=== PATIENT | male | born 1965 | race Caucasian/White ===

== ENCOUNTER 2022-11-06 14:35 | Inpatient (IN) | payer OTHER ==
[2022-11-06 17:41] VITALS: BMI 24.0
[2022-11-06] MEDS ORDERED: IBUPROFEN 600 MG TABLET (FP) PO PRN (20:03)
[2022-11-06] MEDS ORDERED: ACETAMINOPHEN 325 MG TABLET (FP) PO PRN (20:03)
[2022-11-06] MEDS ORDERED: MAGNESIUM HYDROX 2400MG/30ML ORAL SUSPENSION 30 ML CUP PO PRN (20:03)
[2022-11-06] MEDS ORDERED: BISMUTH SUBSALICYLATE 524 MG/30 ML PO PRN (20:03)
[2022-11-06] MEDS ORDERED: POLYETHYLENE GLYCOL (HEALTHYLAX) 3350 17 GM PACKET PO PRN (20:03)
[2022-11-06] MEDS ORDERED: ONDANSETRON *ODT* 4 MG TABLET SL PRN (20:03)
[2022-11-06] MEDS ORDERED: NALOXONE HCL 0.4 MG/ML VIAL IM PRN (20:03)
[2022-11-06] MEDS ORDERED: LOPERAMIDE HCL 2 MG CAPSULE PO PRN (20:03)
[2022-11-06] MEDS ORDERED: NALOXONE HCL (KLOXXADO) 8 MG SPRAY NS PRN (20:03)
[2022-11-06] MEDS ORDERED: MAG HYDROX/AL HYDROX/SIMETH 30 ML UNIT-DOSE CUP PO PRN (20:03)
[2022-11-06] MEDS ORDERED: NICOTINE 10 MG CARTRIDGE (INHALER) IH PRN (20:03)
[2022-11-06] MEDS ORDERED: IBUPROFEN 400 MG TABLET (FP) PO PRN (20:03)
[2022-11-06] MEDS ORDERED: BENZONATATE 200 MG CAPSULE PO PRN (20:03)
[2022-11-06] MEDS ORDERED: DICYCLOMINE HCL 10 MG CAPSULE PO PRN (20:03)
[2022-11-06] MEDS ORDERED: BENZOCAINE/MENTHOL (CHLORASEPTIC ) LOZENGE MM PRN (20:03)
[2022-11-06] MEDS ORDERED: guaiFENesin 600 MG TABLET.ER (FP) PO PRN (20:03)
[2022-11-06] MEDS: THIAMINE HCL 100 MG TABLET (FP) PO SCH (23:41)
[2022-11-06] MEDS: MELATONIN 5 MG TABLETS PO SCH (23:41)
[2022-11-06] MEDS: METHOCARBAMOL 500 MG TABLET PO PRN (23:42)
[2022-11-07] MEDS ORDERED: chlordiazePOXIDE HCL 25 MG CAPSULE PO PRN (10:02)
[2022-11-07] MEDS: chlordiazePOXIDE HCL 25 MG CAPSULE PO SCH ×3 (10:27→22:21)
[2022-11-07] MEDS: PRENATAL VITAMINS W/ FOLIC ACID TABLET (FP) PO SCH (10:27)
[2022-11-07] MEDS: NICOTINE 14 MG/24 HOURS TOPICAL PATCH TD SCH (10:29)
[2022-11-07 11:37] LABS: HEMATOCRIT 33.1 % (35.4-49); HEMOGLOBIN 11.6 GM/dL (11.7-16.9); MCH 35.3 pg (25.7-33.7); MCHC 35.1 g/dl (32.0-35.9); MEAN CELL VOLUME 100.5 fl (80-96); MEAN PLT VOLUME 7.9 fl (7.5-11.1); PLATELET COUNT 383 10^3/uL (134-434); RBC 3.29 M/mm3 (4.00-5.60); RDW 14.3 % (11.9-15.9); WHITE BLOOD COUNT 5.4 K/mm3 (4.0-10.0)
[2022-11-07 11:48] LABS: POTASSIUM 4.4 mmol/L (3.5-5.1)
[2022-11-07 11:51] LABS: CALCIUM 9.6 mg/dL (8.5-10.1)
[2022-11-07 11:52] LABS: ALBUMIN 3.2 g/dl (3.4-5.0); BLOOD UREA NITROGEN 16.6 mg/dL (7-18)
[2022-11-07 11:55] LABS: CREATININE 0.9 mg/dL (0.55-1.3)
[2022-11-07 11:57] LABS: BILIRUBIN,TOTAL 0.4 mg/dL (0.2-1); TOT PROT 6.9 g/dl (6.4-8.2)
[2022-11-07] MEDS: traZODone HCL 100 MG TABLET (FP) PO SCH (22:21)
[2022-11-07] MEDS: MELATONIN 5 MG TABLETS PO SCH (22:21)
[2022-11-07] MEDS: THIAMINE HCL 100 MG TABLET (FP) PO SCH (22:21)
[2022-11-07] MEDS: METHOCARBAMOL 500 MG TABLET PO PRN (22:21)
[2022-11-08] MEDS: chlordiazePOXIDE HCL 25 MG CAPSULE PO SCH ×4 (05:34→22:00)
[2022-11-08] MEDS: PRENATAL VITAMINS W/ FOLIC ACID TABLET (FP) PO SCH (10:12)
[2022-11-08] MEDS: BACITRACIN ZINC 15 GM TUBE TOPICAL OINTMENT TP SCH ×2 (10:15→21:42)
[2022-11-08] MEDS: NICOTINE 14 MG/24 HOURS TOPICAL PATCH TD SCH (10:15)
[2022-11-08] MEDS: THIAMINE HCL 100 MG TABLET (FP) PO SCH (21:42)
[2022-11-08] MEDS: traZODone HCL 100 MG TABLET (FP) PO SCH (21:42)
[2022-11-08] MEDS: MELATONIN 5 MG TABLETS PO SCH (21:42)
[2022-11-08] MEDS: METHOCARBAMOL 500 MG TABLET PO PRN (21:46)
[2022-11-09] MEDS: chlordiazePOXIDE HCL 25 MG CAPSULE PO SCH ×4 (05:19→22:02)
[2022-11-09] MEDS ORDERED: cloNIDine HCL 0.1 MG TABLET PO PRN (09:54)
[2022-11-09] MEDS: PRENATAL VITAMINS W/ FOLIC ACID TABLET (FP) PO SCH (10:13)
[2022-11-09] MEDS: NICOTINE 14 MG/24 HOURS TOPICAL PATCH TD SCH (10:14)
[2022-11-09] MEDS: BACITRACIN ZINC 15 GM TUBE TOPICAL OINTMENT TP SCH ×2 (10:14→22:02)
[2022-11-09] MEDS: traZODone HCL 100 MG TABLET (FP) PO SCH (22:02)
[2022-11-09] MEDS: METHOCARBAMOL 500 MG TABLET PO PRN (22:02)
[2022-11-09] MEDS: THIAMINE HCL 100 MG TABLET (FP) PO SCH (22:02)
[2022-11-09] MEDS: MELATONIN 5 MG TABLETS PO SCH (22:02)
[2022-11-10] MEDS ORDERED: chlordiazePOXIDE HCL 10 MG CAPSULE PO PRN
[2022-11-10] MEDS: chlordiazePOXIDE HCL 10 MG CAPSULE PO SCH ×4 (05:52→23:33)
[2022-11-10] MEDS: PRENATAL VITAMINS W/ FOLIC ACID TABLET (FP) PO SCH (10:24)
[2022-11-10] MEDS: BACITRACIN ZINC 15 GM TUBE TOPICAL OINTMENT TP SCH ×2 (10:24→23:32)
[2022-11-10] MEDS: NICOTINE 14 MG/24 HOURS TOPICAL PATCH TD SCH (10:32)
[2022-11-10 10:55] VITALS: BP 88/59; PULSE 98; TEMP 97.5
[2022-11-10 11:12] VITALS: RESP 16
[2022-11-10] MEDS: traZODone HCL 100 MG TABLET (FP) PO SCH (23:32)
[2022-11-10] MEDS: MELATONIN 5 MG TABLETS PO SCH (23:32)
[2022-11-10] MEDS: THIAMINE HCL 100 MG TABLET (FP) PO SCH (23:33)
[2022-11-11] MEDS ORDERED: chlordiazePOXIDE HCL 10 MG CAPSULE PO SCH (05:00)
[2022-11-12] MEDS ORDERED: chlordiazePOXIDE HCL 10 MG CAPSULE PO ONE (05:00)
== END 2022-11-11 00:20 | disposition short-term general hospital (02) | DRG 774 ==
LOC: YASAS 14:35 → Y3N 22:56
PROVIDERS: ADMIT Allergy & Immunology; ATTEND Surgery
PROC: HZ2ZZZZ Detoxification Services for Substance Abuse Treatment (ICD-10-PCS; principal; 2022-11-06)
DX: F10.230 Alcohol dependence with withdrawal, uncomplicated (principal); F14.20 Cocaine dependence, uncomplicated; F13.20 Sedative, hypnotic or anxiolytic dependence, uncomplicated; F17.210 Nicotine dependence, cigarettes, uncomplicated; F25.9 Schizoaffective disorder, unspecified; F31.9 Bipolar disorder, unspecified; I10 Essential (primary) hypertension; J45.909 Unspecified asthma, uncomplicated; S09.90XA Unspecified injury of head, initial encounter; W19.XXXA Unspecified fall, initial encounter; Y92.239 Unspecified place in hospital as the place of occurrence of the external cause; Z91.199 Patient's noncompliance with other medical treatment and regimen due to unspecified reason; Z28.310 Unvaccinated for COVID-19; Z28.9 Immunization not carried out for unspecified reason
CPT/HCPCS: 36415; 80053; 85027; 86780; 93005; 93010; C9803-CS; U0003; U0005

== ENCOUNTER 2022-11-10 11:20 | Inpatient (IN) | payer OTHER ==
[~2022-11-10 11:20] MED LIST: chlordiazePOXIDE HCL 10 MG CAPSULE PO SCH
[2022-11-10] MEDS ORDERED: SODIUM CHLORIDE 0.9% 1000 ML INFUS.BAG IV ONE (12:59)
[2022-11-10 13:46] LABS: HEMATOCRIT 34.3 % (35.4-49); HEMOGLOBIN 11.9 GM/dL (11.7-16.9); MCH 35.3 pg (25.7-33.7); MCHC 34.8 g/dl (32.0-35.9); MEAN CELL VOLUME 101.4 fl (80-96); MEAN PLT VOLUME 7.5 fl (7.5-11.1); PLATELET COUNT 382 10^3/uL (134-434); RBC 3.38 M/mm3 (4.00-5.60); RDW 14.4 % (11.9-15.9); WHITE BLOOD COUNT 7.8 K/mm3 (4.0-10.0)
[2022-11-10 14:11] LABS: CALCIUM 10.2 mg/dL (8.5-10.1)
[2022-11-10 14:12] LABS: ALBUMIN 3.1 g/dl (3.4-5.0)
[2022-11-10 14:16] LABS: BILIRUBIN,TOTAL 0.2 mg/dL (0.2-1); TOT PROT 6.8 g/dl (6.4-8.2)
[2022-11-10 14:18] LABS: ANISOCYTOSIS 1+; MACROCYTOSIS 0
[2022-11-10 14:21] LABS: BLOOD UREA NITROGEN 9.4 mg/dL (7-18)
[2022-11-10] MEDS ORDERED: chlordiazePOXIDE HCL 10 MG CAPSULE PO PRN (19:59)
[2022-11-10] MEDS ORDERED: METHOCARBAMOL 500 MG TABLET PO PRN (20:08)
[2022-11-10] MEDS ORDERED: MAG HYDROX/AL HYDROX/SIMETH 30 ML UNIT-DOSE CUP PO PRN (20:08)
[2022-11-10] MEDS ORDERED: MAGNESIUM HYDROX 2400MG/30ML ORAL SUSPENSION 30 ML CUP PO PRN (20:08)
[2022-11-10] MEDS ORDERED: IBUPROFEN 400 MG TABLET (FP) PO PRN (20:08)
[2022-11-10] MEDS ORDERED: POLYETHYLENE GLYCOL (HEALTHYLAX) 3350 17 GM PACKET PO PRN (20:08)
[2022-11-10] MEDS ORDERED: LOPERAMIDE HCL 2 MG CAPSULE PO PRN (20:08)
[2022-11-10] MEDS ORDERED: DICYCLOMINE HCL 10 MG CAPSULE PO PRN (20:18)
[2022-11-10] MEDS ORDERED: BISMUTH SUBSALICYLATE 524 MG/30 ML PO PRN (20:19)
[2022-11-10] MEDS ORDERED: BENZOCAINE/MENTHOL (CHLORASEPTIC ) LOZENGE MM PRN (20:20)
[2022-11-10] MEDS ORDERED: ACETAMINOPHEN 325 MG TABLET (FP) PO PRN (20:24)
[2022-11-10] MEDS ORDERED: THIAMINE HCL 100 MG TABLET (FP) ONE (22:49)
[2022-11-10] MEDS ORDERED: MELATONIN 5 MG TABLETS ONE (22:50)
[2022-11-10] MEDS ORDERED: chlordiazePOXIDE HCL 10 MG CAPSULE ONE (22:50)
[2022-11-10] MEDS: chlordiazePOXIDE HCL 10 MG CAPSULE PO SCH (22:53)
[2022-11-10] MEDS: MELATONIN 5 MG TABLETS PO SCH (22:53)
[2022-11-10] MEDS: THIAMINE HCL 100 MG TABLET (FP) PO SCH (22:53)
[2022-11-10 23:53] VITALS: BMI 25.6
[2022-11-10] MEDS ORDERED: traZODone HCL 50 MG TABLET (FP) ONE (23:56)
[2022-11-10] MEDS: traZODone HCL 100 MG TABLET (FP) PO SCH (23:58)
[2022-11-11] MEDS: chlordiazePOXIDE HCL 10 MG CAPSULE PO SCH ×3 (00:07→21:37)
[2022-11-11] MEDS: BACITRACIN ZINC 15 GM TUBE TOPICAL OINTMENT TP SCH ×3 (00:07→21:38)
[2022-11-11 07:42] LABS: POTASSIUM 4.1 mmol/L (3.5-5.1)
[2022-11-11 07:47] LABS: CALCIUM 9.4 mg/dL (8.5-10.1); MAGNESIUM 1.2 mg/dL (1.8-2.4)
[2022-11-11 07:50] LABS: CREATININE 1.1 mg/dL (0.55-1.3)
[2022-11-11 07:57] LABS: HEMATOCRIT 31.3 % (35.4-49); HEMOGLOBIN 10.9 GM/dL (11.7-16.9); MCH 35.1 pg (25.7-33.7); MCHC 34.8 g/dl (32.0-35.9); MEAN CELL VOLUME 100.8 fl (80-96); MEAN PLT VOLUME 7.6 fl (7.5-11.1); PLATELET COUNT 355 10^3/uL (134-434); RDW 14.6 % (11.9-15.9); WHITE BLOOD COUNT 6.8 K/mm3 (4.0-10.0)
[2022-11-11] MEDS ORDERED: MAGNESIUM SULF 50% (8.12 MEQ/2 ML-1 GM VIAL) IVPB ONE (08:46)
[2022-11-11] MEDS: NICOTINE 14 MG/24 HOURS TOPICAL PATCH TD SCH (09:55)
[2022-11-11] MEDS: PRENATAL VITAMINS W/ FOLIC ACID TABLET (FP) PO SCH (10:01)
[2022-11-11 10:14] LABS: ANISOCYTOSIS 1+; MACROCYTOSIS 1+
[2022-11-11] MEDS ORDERED: LACTATED RINGERS SOLUTION 1,000 ML/1,000 ML INFUS.BAG IV STA (13:23)
[2022-11-11] MEDS ORDERED: traZODone HCL 50 MG TABLET (FP) ONE (21:10)
[2022-11-11] MEDS: MAGNESIUM OXIDE 400 MG TABLET (FP) PO SCH (21:32)
[2022-11-11] MEDS: HEPARIN NA (PORCINE) 5,000 UNITS/ML 1ML VIAL SQ SCH (21:33)
[2022-11-11] MEDS: MELATONIN 5 MG TABLETS PO SCH (21:37)
[2022-11-11] MEDS: traZODone HCL 100 MG TABLET (FP) PO SCH (21:38)
[2022-11-11] MEDS ORDERED: HEPARIN NA (PORCINE) 5,000 UNITS/ML 1ML VIAL SQ SCH (22:00)
[2022-11-11] MEDS: THIAMINE HCL 100 MG TABLET (FP) PO SCH (22:25)
[2022-11-12] MEDS: HEPARIN NA (PORCINE) 5,000 UNITS/ML 1ML VIAL SQ SCH ×3 (06:24→21:55)
[2022-11-12 08:41] LABS: POTASSIUM 4.3 mmol/L (3.5-5.1)
[2022-11-12 08:42] LABS: CALCIUM 9.3 mg/dL (8.5-10.1)
[2022-11-12 08:43] LABS: BLOOD UREA NITROGEN 12.6 mg/dL (7-18); MAGNESIUM 1.7 mg/dL (1.8-2.4)
[2022-11-12 08:46] LABS: CREATININE 1.1 mg/dL (0.55-1.3)
[2022-11-12 08:54] LABS: CHOLESTEROL 179 mg/dL (50-200)
[2022-11-12 08:56] LABS: LDL CHOLESTEROL (ONLY SJRH) 100 mg/dL (5-100)
[2022-11-12 08:58] LABS: HDL CHOLESTEROL 56 mg/dL (40-60)
[2022-11-12] MEDS: NICOTINE 14 MG/24 HOURS TOPICAL PATCH TD SCH (09:41)
[2022-11-12] MEDS: PRENATAL VITAMINS W/ FOLIC ACID TABLET (FP) PO SCH (09:41)
[2022-11-12] MEDS: MAGNESIUM OXIDE 400 MG TABLET (FP) PO SCH ×2 (09:41→21:56)
[2022-11-12] MEDS: BACITRACIN ZINC 15 GM TUBE TOPICAL OINTMENT TP SCH ×2 (09:42→22:38)
[2022-11-12] MEDS ORDERED: chlordiazePOXIDE HCL 10 MG CAPSULE PO ONE (10:00)
[2022-11-12] MEDS ORDERED: MAGNESIUM 1GM/D5W - 1 GM/100 ML IVPB IVPB ONE (11:53)
[2022-11-12] MEDS ORDERED: traZODone HCL 50 MG TABLET (FP) ONE (21:47)
[2022-11-12] MEDS: MELATONIN 5 MG TABLETS PO SCH (21:54)
[2022-11-12] MEDS: THIAMINE HCL 100 MG TABLET (FP) PO SCH (21:54)
[2022-11-12] MEDS: traZODone HCL 100 MG TABLET (FP) PO SCH (21:55)
[2022-11-13] MEDS: HEPARIN NA (PORCINE) 5,000 UNITS/ML 1ML VIAL SQ SCH ×3 (06:38→21:48)
[2022-11-13] MEDS: PRENATAL VITAMINS W/ FOLIC ACID TABLET (FP) PO SCH (09:18)
[2022-11-13] MEDS: MAGNESIUM OXIDE 400 MG TABLET (FP) PO SCH ×2 (09:18→21:48)
[2022-11-13] MEDS: NICOTINE 14 MG/24 HOURS TOPICAL PATCH TD SCH (09:18)
[2022-11-13] MEDS: BACITRACIN ZINC 15 GM TUBE TOPICAL OINTMENT TP SCH ×2 (09:18→21:49)
[2022-11-13] MEDS ORDERED: IBUPROFEN 400 MG TABLET (FP) PO PRN (10:48)
[2022-11-13] MEDS ORDERED: POLYETHYLENE GLYCOL (HEALTHYLAX) 3350 17 GM PACKET PO PRN (10:48)
[2022-11-13] MEDS ORDERED: ACETAMINOPHEN 325 MG TABLET (FP) PO PRN (10:48)
[2022-11-13] MEDS ORDERED: SODIUM CHLORIDE 1,000 ML IV STA (12:19)
[2022-11-13] MEDS: chlordiazePOXIDE HCL 10 MG CAPSULE PO PRN (12:52)
[2022-11-13 16:05] LABS: COCAINE, UR NEGATIVE (NEGATIVE); METHADONE, UR NEGATIVE (NEGATIVE); OPIATES, URI NEGATIVE (NEGATIVE)
[2022-11-13 16:06] LABS: PHENCYCLIDINE,URINE NEGATIVE (NEGATIVE)
[2022-11-13 16:11] LABS: URINE AMPHETAMINES NEGATIVE (NEGATIVE); URINE BARBITURATES NEGATIVE (NEGATIVE); URINE BENZODIAZEPINES POSITIVE (NEGATIVE)
[2022-11-13] MEDS ORDERED: MAGNESIUM 2GM/50ML STERILE WATER IVPB IVPB ONE (17:08)
[2022-11-13] MEDS: traZODone HCL 100 MG TABLET (FP) PO SCH (21:48)
[2022-11-13] MEDS: MELATONIN 5 MG TABLETS PO SCH (21:48)
[2022-11-13] MEDS: THIAMINE HCL 100 MG TABLET (FP) PO SCH (21:48)
[2022-11-14] MEDS: HEPARIN NA (PORCINE) 5,000 UNITS/ML 1ML VIAL SQ SCH ×3 (05:17→21:40)
[2022-11-14] MEDS: PRENATAL VITAMINS W/ FOLIC ACID TABLET (FP) PO SCH (09:06)
[2022-11-14] MEDS: NICOTINE 14 MG/24 HOURS TOPICAL PATCH TD SCH (09:06)
[2022-11-14] MEDS: BACITRACIN ZINC 15 GM TUBE TOPICAL OINTMENT TP SCH ×2 (09:06→22:01)
[2022-11-14] MEDS: MAGNESIUM OXIDE 400 MG TABLET (FP) PO SCH ×2 (09:06→21:40)
[2022-11-14 09:09] LABS: POTASSIUM 4.6 mmol/L (3.5-5.1)
[2022-11-14 09:13] LABS: HEMATOCRIT 34.1 % (35.4-49); HEMOGLOBIN 11.8 GM/dL (11.7-16.9); MCH 34.7 pg (25.7-33.7); MCHC 34.8 g/dl (32.0-35.9); MEAN CELL VOLUME 99.9 fl (80-96); MEAN PLT VOLUME 7.4 fl (7.5-11.1); PLATELET COUNT 349 10^3/uL (134-434); RBC 3.41 M/mm3 (4.00-5.60); RDW 14.7 % (11.9-15.9); WHITE BLOOD COUNT 5.4 K/mm3 (4.0-10.0)
[2022-11-14 09:16] LABS: ALBUMIN 3.4 g/dl (3.4-5.0); BLOOD UREA NITROGEN 13.2 mg/dL (7-18); CALCIUM 9.8 mg/dL (8.5-10.1); MAGNESIUM 2.1 mg/dL (1.8-2.4)
[2022-11-14 09:18] LABS: BILIRUBIN,TOTAL 0.3 mg/dL (0.2-1); CREATININE 0.9 mg/dL (0.55-1.3)
[2022-11-14 09:19] LABS: PHOSPHOROUS 4.2 mg/dL (2.5-4.9); TOT PROT 7.1 g/dl (6.4-8.2)
[2022-11-14 10:12] LABS: ANISOCYTOSIS 0; HELMET CELLS 0; HOWELL-JOLLY BODIES 0; MACROCYTOSIS 0; OVALOCYTE 0; ROULEAU 0; SICKELED CELLS 0; TARGET CELLS 0; TEAR DROP CELLS 0; TOXIC GRANULATION 0
[2022-11-14] MEDS: chlordiazePOXIDE HCL 10 MG CAPSULE PO PRN (18:23)
[2022-11-14] MEDS: MELATONIN 5 MG TABLETS PO SCH (21:40)
[2022-11-14] MEDS: traZODone HCL 100 MG TABLET (FP) PO SCH (21:40)
[2022-11-14] MEDS: THIAMINE HCL 100 MG TABLET (FP) PO SCH (21:41)
[2022-11-15] MEDS: chlordiazePOXIDE HCL 10 MG CAPSULE PO PRN (03:13)
[2022-11-15] MEDS: HEPARIN NA (PORCINE) 5,000 UNITS/ML 1ML VIAL SQ SCH (05:35)
[2022-11-15] MEDS: MAGNESIUM OXIDE 400 MG TABLET (FP) PO SCH (09:02)
[2022-11-15] MEDS: BACITRACIN ZINC 15 GM TUBE TOPICAL OINTMENT TP SCH (09:02)
[2022-11-15] MEDS: NICOTINE 14 MG/24 HOURS TOPICAL PATCH TD SCH (09:02)
[2022-11-15] MEDS: PRENATAL VITAMINS W/ FOLIC ACID TABLET (FP) PO SCH (09:03)
[2022-11-15 14:27] VITALS: BP 115/74; PULSE 95; RESP 16; TEMP 97.7
== END 2022-11-15 14:27 | disposition other institution (70) | DRG 204 ==
LOC: JER 11:20 → JERBED 17:37 → J4W 23:30 → OBSVTOIN 11-12 14:38 → J5S 11-13 10:46 → J4S 11-14 17:56
PROVIDERS: ADMIT Internal Medicine; ATTEND Nurse Practitioner Acute Care
PROC: HZ2ZZZZ Detoxification Services for Substance Abuse Treatment (ICD-10-PCS; principal; 2022-11-10)
DX: R55 Syncope and collapse (principal); F25.9 Schizoaffective disorder, unspecified; F10.239 Alcohol dependence with withdrawal, unspecified; F17.210 Nicotine dependence, cigarettes, uncomplicated; F43.10 Post-traumatic stress disorder, unspecified; I10 Essential (primary) hypertension; F31.9 Bipolar disorder, unspecified; G47.00 Insomnia, unspecified; D64.9 Anemia, unspecified
CPT/HCPCS: 36415; 70450-TC; 71045-TC-FY; 72125-TC; 80048; 80053; 80061; 80307; 82550; 82607; 82746; 82962; 83735; 84100; 84484; 85025; 93005; 93010; 97116-GP; 97161-GP; 99285-25; C9803-CS; G0378; J1644; U0003; U0005

== ENCOUNTER 2022-11-15 15:15 | Inpatient (IN) | payer OTHER ==
[2022-11-15 15:47] VITALS: BMI 25.0
[2022-11-15] MEDS ORDERED: NICOTINE 7 MG/24 HOURS TOPICAL PATCH TD PRN (16:18)
[2022-11-15] MEDS ORDERED: IBUPROFEN 600 MG TABLET (FP) PO PRN (16:18)
[2022-11-15] MEDS ORDERED: MAGNESIUM HYDROX 2400MG/30ML ORAL SUSPENSION 30 ML CUP PO PRN (16:18)
[2022-11-15] MEDS ORDERED: ACETAMINOPHEN 325 MG TABLET (FP) PO PRN (16:18)
[2022-11-15] MEDS ORDERED: guaiFENesin 600 MG TABLET.ER (FP) PO PRN (16:18)
[2022-11-15] MEDS ORDERED: IBUPROFEN 400 MG TABLET (FP) PO PRN (16:18)
[2022-11-15] MEDS ORDERED: AMMONIUM LACTATE 12% LOTION 225 GM BOTTLE TP PRN (16:18)
[2022-11-15] MEDS ORDERED: NALOXONE HCL (KLOXXADO) 8 MG SPRAY NS PRN (16:18)
[2022-11-15] MEDS ORDERED: LOPERAMIDE HCL 2 MG CAPSULE PO PRN (16:18)
[2022-11-15] MEDS ORDERED: POLYETHYLENE GLYCOL (HEALTHYLAX) 3350 17 GM PACKET PO PRN (16:18)
[2022-11-15] MEDS ORDERED: BENZONATATE 200 MG CAPSULE PO PRN (16:18)
[2022-11-15] MEDS ORDERED: BENZOCAINE/MENTHOL (CHLORASEPTIC ) LOZENGE MM PRN (16:18)
[2022-11-15] MEDS ORDERED: MELATONIN 5 MG TABLETS PO PRN (16:18)
[2022-11-15] MEDS ORDERED: MAG HYDROX/AL HYDROX/SIMETH 30 ML UNIT-DOSE CUP PO PRN (16:18)
[2022-11-15] MEDS ORDERED: COLLOIDAL OATMEAL 1 BAR EACH TP PRN (16:18)
[2022-11-15] MEDS ORDERED: NALOXONE HCL 0.4 MG/ML VIAL IVPUSH PRN (16:18)
[2022-11-15] MEDS ORDERED: NICOTINE POLACRILEX 2 MG GUM BUC PRN (16:18)
[2022-11-15] MEDS ORDERED: P-EPHED 60MG/TRIPROLIDI 2.5MG TABLET PO PRN (16:18)
[2022-11-15] MEDS: THIAMINE HCL 100 MG TABLET (FP) PO SCH (22:38)
[2022-11-15] MEDS: BACITRACIN 0.9 GM PACKET TP SCH (22:38)
[2022-11-16] MEDS: BACITRACIN 0.9 GM PACKET TP SCH ×2 (10:07→21:14)
[2022-11-16] MEDS: PRENATAL VITAMINS W/ FOLIC ACID TABLET (FP) PO SCH (10:07)
[2022-11-16] MEDS ORDERED: NICOTINE 10 MG CARTRIDGE (INHALER) IH PRN (10:53)
[2022-11-16] MEDS: THIAMINE HCL 100 MG TABLET (FP) PO SCH (21:14)
[2022-11-16] MEDS: traZODone HCL 100 MG TABLET (FP) PO SCH (21:14)
[2022-11-16] MEDS: OLANZapine 5 MG TABLET PO SCH (21:15)
[2022-11-17] MEDS: PRENATAL VITAMINS W/ FOLIC ACID TABLET (FP) PO SCH (09:33)
[2022-11-17] MEDS: BACITRACIN 0.9 GM PACKET TP SCH ×2 (09:33→21:17)
[2022-11-17 11:44] LABS: POTASSIUM 4.5 mmol/L (3.5-5.1)
[2022-11-17 11:46] LABS: INR 1.02 (0.83-1.09); PROTHROMBIN TIME (PATIENT) 11.8 SEC (9.7-13.0)
[2022-11-17 11:46] LABS: CALCIUM 9.7 mg/dL (8.5-10.1)
[2022-11-17 11:47] LABS: HEMATOCRIT 35.8 % (35.4-49); HEMOGLOBIN 12.1 GM/dL (11.7-16.9); MCH 33.9 pg (25.7-33.7); MCHC 33.7 g/dl (32.0-35.9); MEAN CELL VOLUME 100.5 fl (80-96); MEAN PLT VOLUME 7.4 fl (7.5-11.1); PLATELET COUNT 353 10^3/uL (134-434); RBC 3.56 M/mm3 (4.00-5.60); RDW 13.8 % (11.9-15.9); WHITE BLOOD COUNT 6.1 K/mm3 (4.0-10.0)
[2022-11-17 11:47] LABS: ALBUMIN 3.4 g/dl (3.4-5.0); BLOOD UREA NITROGEN 13.1 mg/dL (7-18)
[2022-11-17 11:48] LABS: MAGNESIUM 1.7 mg/dL (1.8-2.4)
[2022-11-17 11:50] LABS: PHOSPHOROUS 4.6 mg/dL (2.5-4.9)
[2022-11-17 11:51] LABS: BILIRUBIN,TOTAL 0.4 mg/dL (0.2-1); TOT PROT 7.1 g/dl (6.4-8.2)
[2022-11-17 12:25] LABS: ANISOCYTOSIS 0; HELMET CELLS 0; HOWELL-JOLLY BODIES 0; MACROCYTOSIS 0; OVALOCYTE 0; ROULEAU 0; SICKELED CELLS 0; TARGET CELLS 0; TEAR DROP CELLS 0; TOXIC GRANULATION 0
[2022-11-17] MEDS: LACTULOSE 20 GM/30 ML UDC (FOR ORAL USE ONLY) PO SCH ×2 (13:12→21:17)
[2022-11-17] MEDS: MAGNESIUM OXIDE 400 MG TABLET (FP) PO SCH (14:06)
[2022-11-17] MEDS: traZODone HCL 100 MG TABLET (FP) PO SCH (21:17)
[2022-11-17] MEDS: THIAMINE HCL 100 MG TABLET (FP) PO SCH (21:17)
[2022-11-17] MEDS: OLANZapine 5 MG TABLET PO SCH (21:17)
[2022-11-18] MEDS: LACTULOSE 20 GM/30 ML UDC (FOR ORAL USE ONLY) PO SCH ×3 (06:33→21:36)
[2022-11-18] MEDS: PRENATAL VITAMINS W/ FOLIC ACID TABLET (FP) PO SCH (09:16)
[2022-11-18] MEDS: BACITRACIN 0.9 GM PACKET TP SCH ×2 (09:16→21:36)
[2022-11-18] MEDS: MAGNESIUM OXIDE 400 MG TABLET (FP) PO SCH (09:16)
[2022-11-18] MEDS: CHOLECALCIFEROL (VIT D3) 400 UNIT (10 MCG) TABLET PO SCH (10:37)
[2022-11-18] MEDS: THIAMINE HCL 100 MG TABLET (FP) PO SCH (21:36)
[2022-11-18] MEDS: traZODone HCL 100 MG TABLET (FP) PO SCH (21:36)
[2022-11-18] MEDS: OLANZapine 5 MG TABLET PO SCH (21:36)
[2022-11-19] MEDS: LACTULOSE 20 GM/30 ML UDC (FOR ORAL USE ONLY) PO SCH ×3 (06:24→21:25)
[2022-11-19] MEDS: MAGNESIUM OXIDE 400 MG TABLET (FP) PO SCH (09:45)
[2022-11-19] MEDS: CHOLECALCIFEROL (VIT D3) 400 UNIT (10 MCG) TABLET PO SCH (09:45)
[2022-11-19] MEDS: PRENATAL VITAMINS W/ FOLIC ACID TABLET (FP) PO SCH (09:45)
[2022-11-19] MEDS: BACITRACIN 0.9 GM PACKET TP SCH ×2 (09:45→21:25)
[2022-11-19 20:38] VITALS: RESP 18
[2022-11-19] MEDS: traZODone HCL 100 MG TABLET (FP) PO SCH (21:25)
[2022-11-19] MEDS: THIAMINE HCL 100 MG TABLET (FP) PO SCH (21:25)
[2022-11-19] MEDS: OLANZapine 5 MG TABLET PO SCH (21:25)
[2022-11-20] MEDS: LACTULOSE 20 GM/30 ML UDC (FOR ORAL USE ONLY) PO SCH ×2 (06:25→13:18)
[2022-11-20 07:13] VITALS: BP 108/75; PULSE 99; TEMP 97.6
[2022-11-20] MEDS: MAGNESIUM OXIDE 400 MG TABLET (FP) PO SCH (09:40)
[2022-11-20] MEDS: BACITRACIN 0.9 GM PACKET TP SCH (09:40)
[2022-11-20] MEDS: PRENATAL VITAMINS W/ FOLIC ACID TABLET (FP) PO SCH (09:40)
[2022-11-20] MEDS: CHOLECALCIFEROL (VIT D3) 400 UNIT (10 MCG) TABLET PO SCH (09:41)
== END 2022-11-20 12:58 | disposition left against medical advice (07) | DRG 770 ==
LOC: YASAS 15:15 → Y3E 17:14
PROVIDERS: ADMIT Allergy & Immunology; ATTEND Psychiatry & Neurology Pain Medicine
PROC: HZ42ZZZ Group Counseling for Substance Abuse Treatment, Cognitive-Behavioral (ICD-10-PCS; principal; 2022-11-15)
DX: F10.20 Alcohol dependence, uncomplicated (principal); F17.210 Nicotine dependence, cigarettes, uncomplicated; F31.9 Bipolar disorder, unspecified; F25.9 Schizoaffective disorder, unspecified; E72.20 Disorder of urea cycle metabolism, unspecified; I10 Essential (primary) hypertension; G47.00 Insomnia, unspecified; L03.113 Cellulitis of right upper limb; Z86.73 Personal history of transient ischemic attack (TIA), and cerebral infarction without residual deficits; Z91.199 Patient's noncompliance with other medical treatment and regimen due to unspecified reason; Z99.89 Dependence on other enabling machines and devices; Z59.00 Homelessness unspecified
CPT/HCPCS: 36415; 80053; 82140; 82465; 82607; 82652; 82746; 83718; 83721; 83735; 84100; 84478; 85025; 85610; 87635

== ENCOUNTER 2023-05-09 14:28 | Inpatient (IN) | payer OTHER ==
[2023-05-09 14:57] VITALS: BMI 23.8
[2023-05-09] MEDS ORDERED: ONDANSETRON *ODT* 4 MG TABLET SL PRN (17:50)
[2023-05-09] MEDS ORDERED: NALOXONE HCL 0.4 MG/ML VIAL IM PRN (17:50)
[2023-05-09] MEDS ORDERED: IBUPROFEN 600 MG TABLET (FP) PO PRN (17:50)
[2023-05-09] MEDS ORDERED: hydrOXYzine PAMOATE 25 MG CAPSULE (FP) PO PRN (17:50)
[2023-05-09] MEDS ORDERED: MAG HYDROX/AL HYDROX/SIMETH 30 ML UNIT-DOSE CUP PO PRN (17:50)
[2023-05-09] MEDS ORDERED: guaiFENesin 600 MG TABLET.ER (FP) PO PRN (17:50)
[2023-05-09] MEDS ORDERED: BENZOCAINE/MENTHOL (CHLORASEPTIC ) LOZENGE MM PRN (17:50)
[2023-05-09] MEDS ORDERED: BISMUTH SUBSALICYLATE 524 MG/30 ML PO PRN (17:50)
[2023-05-09] MEDS ORDERED: BENZONATATE 200 MG CAPSULE PO PRN (17:50)
[2023-05-09] MEDS ORDERED: METHOCARBAMOL 500 MG TABLET PO PRN (17:50)
[2023-05-09] MEDS ORDERED: diazePAM 5 MG TABLET PO PRN (17:50)
[2023-05-09] MEDS ORDERED: POLYETHYLENE GLYCOL (HEALTHYLAX) 3350 17 GM PACKET PO PRN (17:50)
[2023-05-09] MEDS ORDERED: NALOXONE HCL (KLOXXADO) 8 MG SPRAY NS PRN (17:50)
[2023-05-09] MEDS ORDERED: IBUPROFEN 400 MG TABLET (FP) PO PRN (17:50)
[2023-05-09] MEDS ORDERED: DICYCLOMINE HCL 10 MG CAPSULE PO PRN (17:50)
[2023-05-09] MEDS ORDERED: LOPERAMIDE HCL 2 MG CAPSULE PO PRN (17:50)
[2023-05-09] MEDS ORDERED: ACETAMINOPHEN 325 MG TABLET (FP) PO PRN (17:50)
[2023-05-09] MEDS ORDERED: NICOTINE POLACRILEX 2 MG GUM BUC PRN (17:50)
[2023-05-09] MEDS ORDERED: MAGNESIUM HYDROX 2400MG/30ML ORAL SUSPENSION 30 ML CUP PO PRN (17:50)
[2023-05-09] MEDS: diazePAM 5 MG TABLET PO SCH (22:32)
[2023-05-09] MEDS: MELATONIN 5 MG TABLETS PO SCH (22:36)
[2023-05-09] MEDS: THIAMINE HCL 100 MG TABLET (FP) PO SCH (22:36)
[2023-05-10] MEDS: diazePAM 5 MG TABLET PO SCH ×4 (05:17→22:06)
[2023-05-10] MEDS ORDERED: cloNIDine HCL 0.1 MG TABLET PO ONE (09:30)
[2023-05-10] MEDS: PRENATAL VITAMINS W/ FOLIC ACID TABLET (FP) PO SCH (10:20)
[2023-05-10 12:01] LABS: CHLORIDE 102 mmol/L (98-107); POTASSIUM 3.9 mmol/L (3.5-5.1); SODIUM 140 mmol/L (136-145)
[2023-05-10 12:05] LABS: HEMATOCRIT 32.6 % (35.4-49); HEMOGLOBIN 11.3 GM/dL (11.7-16.9); MCH 35.1 pg (25.7-33.7); MCHC 34.6 g/dl (32.0-35.9); MEAN CELL VOLUME 101.4 fl (80-96); RBC 3.21 M/mm3 (4.00-5.60); WHITE BLOOD COUNT 5.6 K/mm3 (4.0-10.0)
[2023-05-10 12:12] LABS: ANION GAP 10 mmol/L (4-13); CALCIUM 8.4 mg/dL (8.5-10.1); CO2 29 mmol/L (21-32); GLUCOSE,RANDOM 88 mg/dL (74-106)
[2023-05-10 12:15] LABS: CREATININE 0.9 mg/dL (0.55-1.3); SGPT/ALT 40 U/L (13-61)
[2023-05-10 12:16] LABS: SGOT/AST 67 U/L (15-37)
[2023-05-10 12:17] LABS: BILIRUBIN,TOTAL 1.2 mg/dL (0.2-1); BLOOD UREA NITROGEN 9.1 mg/dL (7-18); TOT PROT 6.3 g/dl (6.4-8.2)
[2023-05-10 12:18] LABS: ALK PHOS 60 U/L (45-117)
[2023-05-10 13:12] LABS: MEAN PLT VOLUME 8.7 fl (7.5-11.1); PLATELET COUNT 129 10^3/uL (134-434)
[2023-05-10] MEDS: amLODIPine BESYLATE 5 MG TABLET (FP) PO SCH (18:00)
[2023-05-10] MEDS: MELATONIN 5 MG TABLETS PO SCH (22:06)
[2023-05-10] MEDS: traZODone HCL 50 MG TABLET (FP) PO SCH (22:06)
[2023-05-10] MEDS: THIAMINE HCL 100 MG TABLET (FP) PO SCH (22:06)
[2023-05-10] MEDS: OLANZapine 5 MG TABLET PO SCH (22:06)
[2023-05-11] MEDS: diazePAM 5 MG TABLET PO SCH ×3 (05:25→21:40)
[2023-05-11] MEDS: PRENATAL VITAMINS W/ FOLIC ACID TABLET (FP) PO SCH (10:07)
[2023-05-11] MEDS: amLODIPine BESYLATE 5 MG TABLET (FP) PO SCH (10:07)
[2023-05-11] MEDS: LACTULOSE 20 GM/30 ML UDC (FOR ORAL USE ONLY) PO SCH ×2 (13:35→21:41)
[2023-05-11] MEDS: traZODone HCL 50 MG TABLET (FP) PO SCH (21:40)
[2023-05-11] MEDS: OLANZapine 5 MG TABLET PO SCH (21:40)
[2023-05-11] MEDS: THIAMINE HCL 100 MG TABLET (FP) PO SCH (21:40)
[2023-05-11] MEDS: MELATONIN 5 MG TABLETS PO SCH (21:40)
[2023-05-12] MEDS: LACTULOSE 20 GM/30 ML UDC (FOR ORAL USE ONLY) PO SCH (05:38)
[2023-05-12] MEDS ORDERED: diazePAM 5 MG TABLET PO SCH (06:00)
[2023-05-12 06:41] VITALS: RESP 16
[2023-05-12 09:40] VITALS: BP 101/65; PULSE 70; TEMP 97.7
[2023-05-12] MEDS: amLODIPine BESYLATE 5 MG TABLET (FP) PO SCH (10:33)
[2023-05-12] MEDS: PRENATAL VITAMINS W/ FOLIC ACID TABLET (FP) PO SCH (10:33)
[2023-05-13] MEDS ORDERED: diazePAM 5 MG TABLET PO ONE (06:00)
== END 2023-05-12 13:16 | disposition home or self-care (01) | DRG 774 ==
LOC: YASAS 14:28 → Y3N 18:29
PROVIDERS: ADMIT Allergy & Immunology; ATTEND Surgery
PROC: HZ2ZZZZ Detoxification Services for Substance Abuse Treatment (ICD-10-PCS; principal; 2023-05-09)
DX: F10.230 Alcohol dependence with withdrawal, uncomplicated (principal); F14.20 Cocaine dependence, uncomplicated; F17.210 Nicotine dependence, cigarettes, uncomplicated; F19.282 Other psychoactive substance dependence with psychoactive substance-induced sleep disorder; F19.24 Other psychoactive substance dependence with psychoactive substance-induced mood disorder; F20.0 Paranoid schizophrenia; I10 Essential (primary) hypertension; Z28.310 Unvaccinated for COVID-19; Z28.9 Immunization not carried out for unspecified reason
CPT/HCPCS: 36415; 80053; 80307; 82140; 85027; 86780; 87635

== ENCOUNTER 2024-01-24 10:48 | Inpatient (IN) | payer OTHER ==
[2024-01-24 11:45] VITALS: BMI 23.6
[2024-01-24] MEDS ORDERED: MAG HYDROX/AL HYDROX/SIMETH 30 ML UNIT-DOSE CUP PO PRN (14:34)
[2024-01-24] MEDS ORDERED: BENZONATATE 200 MG CAPSULE PO PRN (14:34)
[2024-01-24] MEDS ORDERED: NALOXONE HCL 0.4 MG/ML VIAL IM PRN (14:34)
[2024-01-24] MEDS ORDERED: ACETAMINOPHEN 325 MG TABLET (FP) PO PRN (14:34)
[2024-01-24] MEDS ORDERED: ONDANSETRON *ODT* 4 MG TABLET SL PRN (14:34)
[2024-01-24] MEDS ORDERED: BENZOCAINE/MENTHOL (CHLORASEPTIC ) LOZENGE MM PRN (14:34)
[2024-01-24] MEDS ORDERED: DICYCLOMINE HCL 10 MG CAPSULE PO PRN (14:34)
[2024-01-24] MEDS ORDERED: LOPERAMIDE HCL 2 MG CAPSULE PO PRN (14:34)
[2024-01-24] MEDS ORDERED: NALOXONE (NARCAN) HCL 4 MG/0.1 ML SPRAY NS PRN (14:34)
[2024-01-24] MEDS ORDERED: POLYETHYLENE GLYCOL (HEALTHYLAX) 3350 17 GM PACKET PO PRN (14:34)
[2024-01-24] MEDS ORDERED: IBUPROFEN 600 MG TABLET (FP) PO PRN (14:34)
[2024-01-24] MEDS ORDERED: BISMUTH SUBSALICYLATE 262 MG/15 ML BTL PO PRN (14:34)
[2024-01-24] MEDS ORDERED: MAGNESIUM HYDROX 2400MG/30ML ORAL SUSPENSION 30 ML CUP PO PRN (14:34)
[2024-01-24] MEDS ORDERED: guaiFENesin 600 MG TABLET.ER (FP) PO PRN (14:34)
[2024-01-24] MEDS ORDERED: IBUPROFEN 400 MG TABLET (FP) PO ONE (15:18)
[2024-01-24] MEDS ORDERED: PRENATAL VITAMINS W/ FOLIC ACID TABLET (FP) PO ONE (15:18)
[2024-01-24] MEDS ORDERED: diazePAM 5 MG TABLET ONE (15:18)
[2024-01-24] MEDS: IBUPROFEN 400 MG TABLET (FP) PO PRN (15:20)
[2024-01-24] MEDS: PRENATAL VITAMINS W/ FOLIC ACID TABLET (FP) PO SCH (15:21)
[2024-01-24] MEDS: diazePAM 5 MG TABLET PO ONE (15:21)
[2024-01-24] MEDS: diazePAM 5 MG TABLET PO SCH (18:50)
[2024-01-24] MEDS: MELATONIN 5 MG TABLETS PO SCH (22:21)
[2024-01-24] MEDS: THIAMINE 100 MG TABLET PO SCH (22:21)
[2024-01-25] MEDS: METHOCARBAMOL 500 MG TABLET PO PRN (10:08)
[2024-01-25] MEDS: hydrOXYzine PAMOATE 25 MG CAPSULE (FP) PO PRN (10:08)
[2024-01-25 11:24] LABS: HEMATOCRIT 34.4 % (35.4-49); HEMOGLOBIN 11.7 GM/dL (11.7-16.9); MCH 34.9 pg (25.7-33.7); MCHC 34.1 g/dl (32.0-35.9); MEAN CELL VOLUME 102.4 fl (80-96); MEAN PLT VOLUME 8.2 fl (7.5-11.1); PLATELET COUNT 111 10^3/uL (134-434); RBC 3.36 M/mm3 (4.00-5.60); RDW 15.3 % (11.9-15.9); WHITE BLOOD COUNT 3.6 K/mm3 (4.0-10.0)
[2024-01-25 11:25] LABS: CHLORIDE 97 mmol/L (98-107); POTASSIUM 3.9 mmol/L (3.5-5.1); SODIUM 136 mmol/L (136-145)
[2024-01-25 11:38] LABS: ALBUMIN 3.6 g/dl (3.4-5.0); ANION GAP 9 mmol/L (4-13); CO2 30 mmol/L (21-32); GLUCOSE,RANDOM 124 mg/dL (74-106)
[2024-01-25 11:41] LABS: SGOT/AST 191 U/L (15-37); SGPT/ALT 88 U/L (13-61); TOT PROT 6.7 g/dl (6.4-8.2)
[2024-01-25 11:42] LABS: BILIRUBIN,TOTAL 1.6 mg/dL (0.2-1)
[2024-01-25 11:44] LABS: ALK PHOS 50 U/L (45-117)
[2024-01-26] MEDS: diazePAM 5 MG TABLET PO SCH (05:37)
[2024-01-26] MEDS: diazePAM 5 MG TABLET PO PRN (09:55)
[2024-01-26 10:33] LABS: POTASSIUM 3.5 mmol/L (3.5-5.1)
[2024-01-26 10:36] LABS: ALBUMIN 3.2 g/dl (3.4-5.0); BLOOD UREA NITROGEN 6.8 mg/dL (7-18)
[2024-01-26 10:40] LABS: BILIRUBIN,TOTAL 0.8 mg/dL (0.2-1)
[2024-01-26 10:42] LABS: TOT PROT 6.3 g/dl (6.4-8.2)
[2024-01-27] MEDS: diazePAM 5 MG TABLET PO SCH (05:32)
[2024-01-28] MEDS: diazePAM 5 MG TABLET PO ONE (05:33)
[2024-01-28 08:53] VITALS: BP 117/80; PULSE 94; RESP 18; TEMP 97.3
== END 2024-01-28 10:30 | disposition home or self-care (01) | DRG 774 ==
LOC: YASAS 10:48 → Y6N 14:58
PROVIDERS: ADMIT Allergy & Immunology; ATTEND Surgery
PROC: HZ2ZZZZ Detoxification Services for Substance Abuse Treatment (ICD-10-PCS; principal; 2024-01-24)
DX: F10.230 Alcohol dependence with withdrawal, uncomplicated (principal); F14.20 Cocaine dependence, uncomplicated; F17.210 Nicotine dependence, cigarettes, uncomplicated; F20.9 Schizophrenia, unspecified; F19.94 Other psychoactive substance use, unspecified with psychoactive substance-induced mood disorder; F31.9 Bipolar disorder, unspecified; I10 Essential (primary) hypertension; G47.00 Insomnia, unspecified; Z59.00 Homelessness unspecified
CPT/HCPCS: 36415; 80053; 80305; 80307; 83036; 85027; 86780; 93005; 93010

== ENCOUNTER 2024-02-22 17:34 | Inpatient (IN) | payer OTHER ==
[2024-02-22 18:15] VITALS: BMI 24.2
[2024-02-22] MEDS ORDERED: chlordiazePOXIDE HCL 25 MG CAPSULE PO PRN (20:43)
[2024-02-22] MEDS ORDERED: POLYETHYLENE GLYCOL (HEALTHYLAX) 3350 17 GM PACKET PO PRN (21:07)
[2024-02-22] MEDS ORDERED: ACETAMINOPHEN 325 MG TABLET (FP) PO PRN (21:07)
[2024-02-22] MEDS ORDERED: ONDANSETRON *ODT* 4 MG TABLET SL PRN (21:07)
[2024-02-22] MEDS ORDERED: NICOTINE POLACRILEX 2 MG LOZENGE BC PRN (21:07)
[2024-02-22] MEDS ORDERED: LOPERAMIDE HCL 2 MG CAPSULE PO PRN (21:07)
[2024-02-22] MEDS ORDERED: DICYCLOMINE HCL 10 MG CAPSULE PO PRN (21:07)
[2024-02-22] MEDS ORDERED: MAGNESIUM HYDROX 2400MG/30ML ORAL SUSPENSION 30 ML CUP PO PRN (21:07)
[2024-02-22] MEDS ORDERED: IBUPROFEN 400 MG TABLET (FP) PO PRN (21:07)
[2024-02-22] MEDS ORDERED: guaiFENesin 600 MG TABLET.ER (FP) PO PRN (21:07)
[2024-02-22] MEDS ORDERED: BISMUTH SUBSALICYLATE 524 MG/30 ML PO PRN (21:07)
[2024-02-22] MEDS ORDERED: BENZONATATE 200 MG CAPSULE PO PRN (21:07)
[2024-02-22] MEDS ORDERED: MAG HYDROX/AL HYDROX/SIMETH 30 ML UNIT-DOSE CUP PO PRN (21:07)
[2024-02-22] MEDS ORDERED: NICOTINE POLACRILEX 2 MG GUM BUC PRN (21:07)
[2024-02-22] MEDS ORDERED: IBUPROFEN 600 MG TABLET (FP) PO PRN (21:07)
[2024-02-22] MEDS ORDERED: MELATONIN 5 MG TABLETS ONE (21:23)
[2024-02-22] MEDS: MELATONIN 5 MG TABLETS PO SCH (21:26)
[2024-02-22] MEDS: SULFAMETHOXAZOLE/TRIMETHOPRIM 800MG/160MG D.S. TABLET PO SCH (21:26)
[2024-02-22] MEDS: THIAMINE 100 MG TABLET PO SCH (21:26)
[2024-02-22] MEDS: P-EPHED 60MG/TRIPROLIDI 2.5MG TABLET PO PRN (21:26)
[2024-02-22] MEDS: chlordiazePOXIDE HCL 25 MG CAPSULE PO ONE (21:27)
[2024-02-23] MEDS: chlordiazePOXIDE HCL 25 MG CAPSULE PO SCH (00:14)
[2024-02-23] MEDS: PRENATAL VITAMINS W/ FOLIC ACID TABLET (FP) PO SCH (10:18)
[2024-02-23] MEDS: diazePAM 5 MG TABLET PO PRN (12:59)
[2024-02-23] MEDS: LACTULOSE 20 GM/30 ML UDC (FOR ORAL USE ONLY) PO SCH (12:59)
[2024-02-23 14:13] LABS: HEMATOCRIT 33.1 % (35.4-49); HEMOGLOBIN 11.3 GM/dL (11.7-16.9); MCHC 34.1 g/dl (32.0-35.9); MEAN CELL VOLUME 102.9 fl (80-96); PLATELET COUNT 237 10^3/uL (134-434); RBC 3.22 M/mm3 (4.00-5.60); RDW 15.1 % (11.9-15.9); WHITE BLOOD COUNT 5.2 K/mm3 (4.0-10.0)
[2024-02-23 14:17] LABS: POTASSIUM 4.5 mmol/L (3.5-5.1)
[2024-02-23 14:23] LABS: ALBUMIN 3.3 g/dl (3.4-5.0); BLOOD UREA NITROGEN 15.8 mg/dL (7-18); CALCIUM 9.1 mg/dL (8.5-10.1)
[2024-02-23 14:28] LABS: BILIRUBIN,TOTAL 0.3 mg/dL (0.2-1); TOT PROT 6.6 g/dl (6.4-8.2)
[2024-02-23] MEDS: diazePAM 5 MG TABLET PO SCH (17:13)
[2024-02-23] MEDS: OLANZapine 5 MG TABLET PO SCH (22:21)
[2024-02-24] MEDS ORDERED: chlordiazePOXIDE HCL 25 MG CAPSULE PO SCH (05:00)
[2024-02-24] MEDS ORDERED: cloNIDine HCL 0.1 MG TABLET PO PRN (13:31)
[2024-02-25] MEDS ORDERED: chlordiazePOXIDE HCL 10 MG CAPSULE PO PRN
[2024-02-25] MEDS ORDERED: chlordiazePOXIDE HCL 10 MG CAPSULE PO SCH (05:00)
[2024-02-25] MEDS: diazePAM 5 MG TABLET PO SCH (05:56)
[2024-02-25] MEDS: amLODIPine BESYLATE 5 MG TABLET (FP) PO SCH (13:14)
[2024-02-26] MEDS ORDERED: chlordiazePOXIDE HCL 10 MG CAPSULE PO SCH (05:00)
[2024-02-26] MEDS: diazePAM 5 MG TABLET PO SCH (06:02)
[2024-02-26] MEDS: hydrOXYzine PAMOATE 25 MG CAPSULE (FP) PO PRN (17:08)
[2024-02-26] MEDS: BENZOCAINE/MENTHOL (CHLORASEPTIC ) LOZENGE MM PRN (17:09)
[2024-02-26] MEDS: METHOCARBAMOL 500 MG TABLET PO PRN (22:07)
[2024-02-27] MEDS ORDERED: chlordiazePOXIDE HCL 10 MG CAPSULE PO ONE (05:00)
[2024-02-27] MEDS: diazePAM 5 MG TABLET PO ONE (06:16)
[2024-02-27 09:29] VITALS: BP 125/80; PULSE 108; RESP 18; TEMP 97.5
== END 2024-02-27 10:17 | disposition home or self-care (01) | DRG 774 ==
LOC: YASAS 17:34 → Y3N 21:29
PROVIDERS: ADMIT Allergy & Immunology; ATTEND Surgery
PROC: HZ2ZZZZ Detoxification Services for Substance Abuse Treatment (ICD-10-PCS; principal; 2024-02-22)
DX: F10.230 Alcohol dependence with withdrawal, uncomplicated (principal); F14.20 Cocaine dependence, uncomplicated; F17.210 Nicotine dependence, cigarettes, uncomplicated; F25.9 Schizoaffective disorder, unspecified; F19.282 Other psychoactive substance dependence with psychoactive substance-induced sleep disorder; F19.24 Other psychoactive substance dependence with psychoactive substance-induced mood disorder; G47.00 Insomnia, unspecified; I10 Essential (primary) hypertension; Z56.0 Unemployment, unspecified; Z59.00 Homelessness unspecified
CPT/HCPCS: 0241U-QW; 36415; 71045-TC-FY; 80053; 80305; 80307; 85027